=== PATIENT | female | born 1980 | race Caucasian/White ===

== ENCOUNTER 2021-11-27 11:32 | Emergency (ER) | payer OTHER ==
[2021-11-27 13:00] LABS: RED BLOOD COUNT 5.35 M/UL (4.00-5.10); WHITE BLOOD COUNT 8.1 K/UL (4.5-11.0)
[2021-11-27 13:29] LABS: BUN/CREATININE RATIO 17 (0-10)
== END 2021-11-27 16:09 | disposition home or self-care (01) ==
LOC: ER1 11:32
PROVIDERS: Physician Assistant
DX: R07.89 Other chest pain (principal); Z86.16 Personal history of COVID-19
CPT/HCPCS: 71045; 80053; 81001; 82550; 82553; 84484; 85025; 93005; 99285